=== PATIENT | female | born 1985 | race Caucasian/White ===

== ENCOUNTER 2021-05-07 10:50 | Emergency (ER) | payer OTHER, SELFPAY ==
[2021-05-08 00:26] LABS: SARS-CoV-2 PCR by NAA Not Detected (NotDetected)
== END 2021-05-07 12:20 | disposition home or self-care (01) ==
LOC: MADERS 10:50
DX: B34.9 Viral infection, unspecified (principal); Z20.822 Contact with and (suspected) exposure to COVID-19
CPT/HCPCS: 99284; U0003; U0005